=== PATIENT | female | born 1970 | race Caucasian/White ===

== ENCOUNTER 2018-01-01 08:34 | Outpatient (CLI) | payer OTHER | END 2018-01-01 08:35 | disposition home or self-care (01) | DRG 554 | LOC: CONVCARE 08:34 | PROVIDERS: ATTEND Orthopaedic Surgery | DX: M94.262 Chondromalacia, left knee (principal); M94.261 Chondromalacia, right knee | CPT/HCPCS: 73560 ==

== ENCOUNTER 2018-01-15 10:18 | Outpatient (CLI) | payer OTHER | END 2018-01-15 10:19 | disposition home or self-care (01) | DRG 563 | LOC: CONVCARE 10:18 | PROVIDERS: ATTEND Orthopaedic Surgery | DX: M22.42 Chondromalacia patellae, left knee (principal) | CPT/HCPCS: 73721 ==